=== PATIENT | male | born 1955 | race Caucasian/White ===

== ENCOUNTER → 2023-12-19 | Outpatient (CLI) | payer MEDICARE | LOC: COL.RAD 10:20 | DX: R16.0 Hepatomegaly, not elsewhere classified (principal); J43.2 Centrilobular emphysema; R91.8 Other nonspecific abnormal finding of lung field; Z72.0 Tobacco use ==

== ENCOUNTER → 2024-03-18 | Outpatient (CLI) | payer MEDICARE ==
[~2024-03-18] MED LIST: 00186-0370-20 IH; ASPIRIN E.C. 8181 MG PO; FERROUS SU325 MG/TAB; FLOMAX 0.40.4 MG/CAP PO; Iohexol 300 - 100 ML VIAL IV ONE; LIPITOR20 MG PO; MULTI VITAMINS1 TAB PO; NATURAL IRON65 MG; NS 100 ML IV SCH; PROAIR RES117 MCG/Ac IH
== END ==
LOC: COL.RAD 07:57
DX: C20 Malignant neoplasm of rectum (principal); C78.7 Secondary malignant neoplasm of liver and intrahepatic bile duct
CPT/HCPCS: Q9967